=== PATIENT | male | born 1970 | race Caucasian/White ===

== ENCOUNTER 2021-03-08 16:09 | Emergency (ER) | payer OTHER ==
[2021-03-08] MEDS ORDERED: NA CHLORIDE 0.9% 1,000 ML ONE (16:40)
[2021-03-08 16:53] LABS: Absolute Lymphocytes (CBC) 0.9 K/uL (0.7-4.9); Basophils % 0.5 % (0-1.3); Hematocrit 41.3 % (39.6-49.0); Lymphocytes % 18.4 % (15.3-44.8); MPV 7.2 fL (7.6-11.3); RBC Red Blood Cell Count 4.29 M/uL (4.33-5.43)
[2021-03-08 17:02] LABS: Protime INR 1.03
[2021-03-08 17:13] LABS: ALT/SGPT 64 U/L (12-78); AST/SGOT 79 U/L (15-37); Albumin 3.8 g/dL (3.4-5.0); Alkaline Phosphatase 53 U/L (45-117); BUN Blood Urea Nitrogen 15 mg/dL (7-18); Bicarbonate 22 mmol/L (21-32); Bilirubin Direct 0.2 mg/dL (0-0.2); Bilirubin Total 0.6 mg/dL (0.2-1.0); CKMB Creatine Kinase MB 3.2 ng/mL (1.0-3.6); Creatine Phosphokinase 256 U/L (39-308); Glucose Level 140 mg/dL (74-106); Lipase 185 U/L (73-393); Potassium 3.7 mmol/L (3.5-5.1); Protein, Total 7.6 g/dL (6.4-8.2); Sodium Level 141 mmol/L (136-145); Troponin (Emerg Dept Use Only) < 0.02 ng/mL (0.0-0.045)
--- NOTE | 2021-03-08 17:18 | RAD REPORT ---
EXAM DESCRIPTION: CT - Head Brain Wo Cont - 03/08/2021 4:54 pm CLINICAL HISTORY: Seizure/confusion COMPARISON: None. TECHNIQUE: Computed axial tomography of the head was obtained. IV contrast was not requested. All CT scans are performed using dose optimization technique as appropriate and may include automated exposure control or mA/KV adjustment according to patient size. FINDINGS: An intracranial bleed is not seen . The ventricles are normal in caliber. No extra-axial fluid collection is noted. Fluid within the sinuses/ mastoids is not seen. IMPRESSION: No acute intracranial abnormality is seen. If patient's symptoms persist MRI of the bra in would be recommended.
[2021-03-08 17:59] LABS: Urine Blood 1+ (Negative); Urine Glucose Negative (Negative); Urine Protein 2+ (Negative); Urine Specific Gravity >=1.030 (1.005-1.030)
[2021-03-08 18:17] LABS: Barbiturates NEGATIVE (NEGATIVE); Benzodiazepines NEGATIVE (NEGATIVE); Cocaine NEGATIVE (NEGATIVE); METHAMPHETAM NEGATIVE (NEGATIVE); Methadone NEGATIVE (NEGATIVE); Opiates NEGATIVE (NEGATIVE); Phencyclidine NEGATIVE (NEGATIVE); THC Cannibis NEGATIVE (NEGATIVE)
--- NOTE | 2021-03-08 18:37 | ER ---
Nurse's Notes [facility] Name: Jerome Sibley Age: 50 yrs Sex: Male : 1970 Arrival Date: 03/08/2021 Time: 16:14 Bed 20 Private MD: Diagnosis: Other seizures Presentation: 03/08 16:15 Chief complaint: EMS states: Seizure - patient was at home and got up from a couch to 2 walk to another room, family members noticed that patient had unsteady gait - his limbs, both upper and lower extremities started jerking and patient passed out - a family member caught him and laid him on the floor - patient lost control of both bladder and bowel - Patient states he remember getting up and feeling really dizzy, the room became really noisy and he was unsteady then passed out. 16:15 Coronavirus screen: Vaccine status: Patient reports receiving the 2nd dose of the covid sl2 vaccine. Ebola Screen: Patient negative for fever greater than or equal to 101.5 degrees Fahrenheit, and additional compatible Ebola Virus Disease symptoms Patient denies exposure to infectious person. Patient denies travel to an Ebola-affected area in the 21 days before illness onset. 16:15 Method Of Arrival: EMS: [facility] 16:15 Initial Sepsis Screen: Does the patient meet any 2 criteria? No. Patient's initial sl2 sepsis screen is negative. Does the patient have a suspected source of infection? No. Patient's initial sepsis screen is negative. Risk Assessment: Do you want to hurt yourself or someone else? Patient reports no desire to harm self or others. Onset of symptoms was March 08, 2021. 16:15 Acuity: CLARI 2 sl2 Triage Assessment: 16:36 General: Appears uncomfortable, well developed, Behavior is calm, cooperative, sl2 appropriate for age. Pain: Denies pain. EENT: No deficits noted. No signs and/or symptoms were reported regarding the EENT system. Neuro: No deficits noted. Reports a syncopal episode. Historical: - Allergies: 16:36 No Known Allergies; sl2 - Immunization history:: Adult Immunizations up to date, Client reports receiving the 2nd dose of the Covid vaccine. - Social history:: Smoking status: Patient denies any tobacco usage or history of. Patient uses alcohol, occasionally. - Family history:: not pertinent. Screenin:30 Abuse screen: Denies threats or abuse. Denies injuries from another. sl2 16:30 Nutritional screening: No deficits noted. Tuberculosis screening: No symptoms or risk sl2 factors identified. Fall Risk No fall in past 12 months (0 pts). No secondary diagnosis (0 pts). No IV (0 pts). Ambulatory Aid- None/Bed Rest/Nurse Assist (0 pts). Gait- Weak (10 pts.). Mental Status- Oriented to own ability (0 pts). Total Delgado Fall Scale indicates Low Risk Score (25-44 pts). Fall prevention measures have been instituted. Placed close to Nursing Station Frequent Obs/Assesments occuring Family Present and informed to notify staff if they need to leave bedside. Assessment: 16:30 Neuro: Level of Consciousness is awake, alert, obeys commands, Oriented to person, sl2 place, time, situation, Appropriate for age Mail Censor are equal bilaterally weak bilaterally Moves all extremities. Full function Weakness Gait is unsteady, Speech is normal, Facial symmetry appears normal, Pupils are PERRLA, Reports a syncopal episode. 16:30 Cardiovascular: Rhythm is regular. sl2 Vital Signs: 16:15 BP 148 / 91; Pulse 112; Resp 22; Temp 98.1(O); Pulse Ox 100% on R/A; sl2 17:30 BP 141 / 105; Pulse 103; Resp 20; Pulse Ox 98% on R/A; sl2 18:00 BP 144 / 83; Pulse 105; Resp 20; Pulse Ox 99% on R/A; sl2 19:00 BP 154 / 82; Pulse 101; Resp 17; Temp 98.2(O); Pulse Ox 99% on R/A; sl2 ED Course: 16:14 Patient arrived in ED. ma2 16:22 Werner Kumar MD is Attending Physician. ma2 16:29 Hortencia Triana RN is Primary Nurse. sl2 16:30 Patient has correct armband on for positive identification. Bed in low position. Call sl2 light in reach. Side rails up X2. Adult w/ patient. 16:30 No provider procedures requiring assistance completed. Maintain EMS IV. Dressing sl2 intact. Good blood return noted. Site clean \T\ dry. Gauge \T\ site: # 20 left Antecubital . 16:36 Triage completed. sl2 16:36 Arm band placed on right wrist. sl2 16:47 CKMB Creatine Kinase MB Sent. 5 16:47 CBC with Automated Diff Sent. mh5 16:47 Creatine Phosphokinase Sent. mh5 16:47 Basic Metabolic Panel Sent. mh5 16:47 Basic Metabolic Panel Sent. mh5 16:47 CBC with Diff Sent. mh5 16:47 CPK Sent. mh5 16:47 Ckmb Sent. mh5 16:48 Lipase Sent. 5 16:48 Magnesium Sent. mh5 16:48 Protime (+inr) Sent. 5 16:48 Ptt, Activated Sent. 5 16:48 Troponin (emerg Dept Use Only) Sent. 5 16:54 CT Head Brain wo Cont In Process Unspecified. EDPA 18:36 Karthik Lenz MD is Referral Physician. ma2 19:10 IV discontinued, intact, bleeding controlled, No redness/swelling at site. Pressure sl2 dressing applied. Administered Medications: 16:35 Drug: NS 0.9% 1000 ml Route: IV; Rate: 1 bolus; Site: left antecubital; sl2 17:00 Follow up: Response: No adverse reaction; IV Status: Infusion continued sl2 18:03 Follow up: IV Status: Completed infusion; IV Intake: 2000ml sl2 18:06 Follow up: IV Status: Completed infusion sl2 19:00 Drug: Keppra (levETIRAcetam) 500 mg Route: PO; sl2 19:07 Follow up: Response: No adverse reaction sl2 Point of Care Testing: Blood Glucose: 16:36 Blood Glucose: 130 mg/dL; 2 Ranges: Intake: 18:03 IV: 2000ml; Total: 2000ml. 2 Outcome: 18:36 Discharge ordered by . ma2 19:09 Discharged to home with family. sl2 19:09 Condition: stable 19:09 Discharge instructions given to patient, family, Instructed on discharge instructions, follow up and referral plans. medication usage, Demonstrated understanding of instructions, Prescriptions given X 1. 19:20 Patient left the ED. sl2 Signatures: Dispatcher [employer] Mildred Lepe 5 Werner Kumar MD MD md2 Hortencia Triana RN RN 2 Corrections: (The following items were deleted from the chart) 16:48 16:47 HEPATIC FUNCTION+C.XANDER.LARRY drawn and sent. mh5 EDMS
--- NOTE | 2021-03-08 18:37 | EDPHYS ---
Physician Documentation [facility] Name: Jerome Sibley Age: 50 yrs Sex: Male : 1970 Arrival Date: 03/08/2021 Time: 16:14 Bed 20 Private MD: ED Physician Werner Kumar HPI: 03/08 18:33 This 50 yrs old Male presents to ER via EMS with complaints of Syncope. ma2 18:33 Onset: The symptoms/episode began/occurred suddenly, 1 hour(s) ago. Associated injury: ma2 The patient did not suffer any apparent associated injury. Associated signs and symptoms: Pertinent negatives: ataxia, combativeness, diaphoresis, dizziness, headache. Current symptoms: Currently, the patient is not experiencing any symptoms. The patient has not experienced similar symptoms in the past. Patient is here with , brought in by EMS, patient reported that he had episode of seizure, shaking all over both upper and lower extremity, and then passed out had urinary incontinence and fecal incontinence. This episode lasted for 45 minutes, and then resolved completely, patient is back to normal, never had this before no family history of sudden , drowning. No history of seizure . Historical: - Allergies: 16:36 No Known Allergies; sl2 - Immunization history:: Adult Immunizations up to date, Client reports receiving the 2nd dose of the Covid vaccine. - Social history:: Smoking status: Patient denies any tobacco usage or history of. Patient uses alcohol, occasionally. - Family history:: not pertinent. ROS: 18:33 Constitutional: Negative for fever, chills, and weight loss. ma2 18:33 All other systems are negative. Exam: 18:33 Abdomen/GI: Inspection: ma2 18:33 Constitutional: This is a well developed, well nourished patient who is awake, alert, and in no acute distress. Head/Face: Normocephalic, atraumatic. Eyes: Pupils equal round and reactive to light, extra-ocular motions intact. Lids and lashes normal. Conjunctiva and sclera are non-icteric and not injected. Cornea within normal limits. Periorbital areas with no swelling, redness, or edema. ENT: Nares patent. No nasal discharge, no septal abnormalities noted. Tympanic membranes are normal and external auditory canals are clear. Oropharynx with no redness, swelling, or masses, exudates, or evidence of obstruction, uvula midline. Mucous membranes moist. Neck: Trachea midline, no thyromegaly or masses palpated, and no cervical lymphadenopathy. Supple, full range of motion without nuchal rigidity, or vertebral point tenderness. No Meningismus. Chest/axilla: Normal chest wall appearance and motion. Nontender with no deformity. No lesions are appreciated. Cardiovascular: Regular rate and rhythm with a normal S1 and S2. No gallops, murmurs, or rubs. Normal PMI, no JVD. No pulse deficits. Respiratory: Lungs have equal breath sounds bilaterally, clear to auscultation and percussion. No rales, rhonchi or wheezes noted. No increased work of breathing, no retractions or nasal flaring. Abdomen/GI: Soft, non-tender, with normal bowel sounds. No distension or tympany. No guarding or rebound. No evidence of tenderness throughout. Back: No spinal tenderness. No costovertebral tenderness. Full range of motion. MS/ Extremity: Pulses equal, no cyanosis. Neurovascular intact. Full, normal range of motion. Neuro: Awake and alert, GCS 15, oriented to person, place, time, and situation. Cranial nerves II-XII grossly intact. Motor strength 5/5 in all extremities. Sensory grossly intact. Cerebellar exam normal. Normal gait. Psych: Awake, alert, with orientation to person, place and time. Behavior, mood, and affect are within normal limits. Vital Signs: 16:15 BP 148 / 91; Pulse 112; Resp 22; Temp 98.1(O); Pulse Ox 100% on R/A; sl2 17:30 BP 141 / 105; Pulse 103; Resp 20; Pulse Ox 98% on R/A; sl2 18:00 BP 144 / 83; Pulse 105; Resp 20; Pulse Ox 99% on R/A; sl2 19:00 BP 154 / 82; Pulse 101; Resp 17; Temp 98.2(O); Pulse Ox 99% on R/A; sl2 MDM: 16:23 Patient medically screened. ma2 18:33 Differential Diagnosis: idiopathic syncope, vasovagal episode, Likely seizure resolved ma2 single episode. Data reviewed: vital signs, nurses notes. Counseling: I had a detailed discussion with the patient and/or guardian regarding: the historical points, exam findings, and any diagnostic results supporting the discharge/admit diagnosis, the presence of at least one elevated blood pressure reading (>120/80) during this emergency department visit, the need for outpatient follow up, I offered admission and inpatient neuro consult. However they would like to follow-up with neurologist as outpatient. They are from [place] and will follow up with a neurologist in [place]. I recommend not driving, or operating heavy machinery until he is cleared from a neurologist. Will prescribe Keppra.. 03/08 16:24 Order name: Basic Metabolic Panel [facility] 03/08 16:24 Order name: CBC with Diff [facility] 03/08 16:24 Order name: CPK [facility] 03/08 16:24 Order name: Ckmb [facility] 03/08 16:24 Order name: Hepatic Function; Complete Time: 18:25 ma2 03/08 16:24 Order name: Lipase; Complete Time: 18: ga2 03/08 16:24 Order name: Magnesium; Complete Time: 18: ga2 03/08 16:24 Order name: Protime (+inr); Complete Time: 18:25 ma2 03/08 16:24 Order name: Ptt, Activated; Complete Time: 18: ma2 03/08 16:24 Order name: Troponin (emerg Dept Use Only); Complete Time: 18: ma2 03/08 16:24 Order name: UDS; Complete Time: 18:25 ma2 03/08 16:24 Order name: Basic Metabolic Panel; Complete Time: 18:25 EDMS 03/08 16:24 Order name: CBC with Automated Diff; Complete Time: 18:25 EDMS 03/08 16:24 Order name: Creatine Phosphokinase; Complete Time: 18:25 EDMS 03/08 16:24 Order name: CT Head Brain wo Cont; Complete Time: 18:25 ma2 03/08 16:24 Order name: EKG; Complete Time: 16:24 ma2 03/08 16:24 Order name: Cardiac monitoring; Complete Time: 16: ma2 03/08 16:24 Order name: EKG - Nurse/Tech; Complete Time: 16: ma2 03/08 16:24 Order name: IV Saline Lock; Complete Time: 16: ma2 03/08 16:24 Order name: Labs collected and sent; Complete Time: 16:47 [facility] 03/08 16:24 Order name: NPO; Complete Time: 16:48 [facility] 03/08 16:24 Order name: O2 Per Protocol; Complete Time: 16:26 [facility] 03/08 16:24 Order name: O2 Sat Monitoring; Complete Time: 16:27 [facility] 03/08 16:24 Order name: Urine Dipstick-Ancillary (obtain specimen); Complete Time: 19:07 [facility] 03/08 16:24 Order name: CKMB Creatine Kinase MB; Complete Time: 18:25 EDMS 03/08 18:00 Order name: Urine Dipstick-Ancillary; Complete Time: 18:25 EDMS Administered Medications: 16:35 Drug: NS 0.9% 1000 ml Route: IV; Rate: 1 bolus; Site: left antecubital; 2 17:00 Follow up: Response: No adverse reaction; IV Status: Infusion continued 2 18:03 Follow up: IV Status: Completed infusion; IV Intake: 2000ml 2 18:06 Follow up: IV Status: Completed infusion 2 19:00 Drug: Keppra (levETIRAcetam) 500 mg Route: PO; 2 19:07 Follow up: Response: No adverse reaction 2 Point of Care Testing: Blood Glucose: 16:36 Blood Glucose: 130 mg/dL; 2 Ranges: Critical Glucose Levels:Adult <50 mg/dl or >400 mg/dl <40 mg/dl or >180 mg/dl Disposition Summary: 03/08/21 18:36 Discharge Ordered Location: Home ma2 Condition: Stable ma2 Diagnosis - Other seizures ma2 Followup: ma2 - With: Karthik Lenz MD - When: Tomorrow - Reason: If symptoms return, Continuance of care Discharge Instructions: - Discharge Summary Sheet ma2 - Seizure, Adult ma2 Forms: - Medication Reconciliation Form ma2 - Thank You Letter ma2 - Antibiotic Education ma2 - Prescription Opioid Use ma2 Prescriptions: - Keppra 500 mg Oral Tablet - take 1 tablet by ORAL route every 12 hours; 20 tablet; Refills: 0, Product ma2 Selection Permitted Signatures: Dispatcher [employer] EDMS Werner Kumar MD MD ga2 Hortencia Triana RN RN 2 Corrections: (The following items were deleted from the chart) 16:48 16:24 HEPATIC FUNCTION+C.RADHA ordered. EDMS EDMS
[2021-03-08] MEDS ORDERED: levETIRAcetam 500 MG TAB ONE (19:04)
[2021-03-08 19:30] VITALS: O2SAT 99
[2021-03-08 19:32] VITALS: BP 154/82; TEMP 98.2
== END 2021-03-08 19:20 | disposition home or self-care (01) ==
LOC: ER 16:09
DX: G40.89 Other seizures (principal)
CPT/HCPCS: 93005; 85025; 80048; 36415; 83735; 82550; 85610; 80076; 85730; 81003; 84484; 82553; 83690; 80307; 70450; 99284; J7030